=== PATIENT | female | born 1940 | race Caucasian/White ===

== ENCOUNTER 2018-01-22 11:26 | Emergency (ER) | payer OTHER ==
[~2018-01-22] VITALS: Ht 154.9 cm; Wt 61.2 kg
[2018-01-22] MEDS ORDERED: AVAPRO75 MG PO (11:51)
[2018-01-22] MEDS ORDERED: TOPROL XL50 M1 PO (11:51)
[2018-01-22] MEDS ORDERED: XANAX XR0.5 MG PO (11:52)
[2018-01-22] MEDS ORDERED: LASIX20 MG PO (11:52)
[2018-01-22] MEDS ORDERED: ZOLOFT50 MG PO (11:52)
[2018-01-22] MEDS ORDERED: SYNTHROID75 MCG PO (11:52)
== END 2018-01-22 13:43 | disposition home or self-care (01) ==
LOC: ER 11:26
DX: S61.411A Laceration without foreign body of right hand, initial encounter (principal); W45.8XXA Other foreign body or object entering through skin, initial encounter; Y93.89 Activity, other specified; Y92.89 Other specified places as the place of occurrence of the external cause; Y99.8 Other external cause status

== ENCOUNTER 2018-02-01 12:45 | Emergency (ER) | payer OTHER ==
[~2018-02-01] VITALS: Ht 154.9 cm; Wt 61.2 kg
[~2018-02-01 12:45] MED LIST: AVAPRO75 MG PO; LASIX20 MG PO; SYNTHROID75 MCG PO; TOPROL XL50 M1 PO; XANAX XR0.5 MG PO; ZOLOFT50 MG PO
== END 2018-02-01 16:14 | disposition home or self-care (01) ==
LOC: ER 12:45
DX: Z48.02 Encounter for removal of sutures (principal)